=== PATIENT | female | born 1960 | race Caucasian/White ===

== ENCOUNTER 2016-08-14 23:14 | Emergency (ER) | payer BC, OTHER ==
[~2016-08-14] VITALS: Ht 157.5 cm; Wt 75.3 kg
[~2016-08-14 23:14] MED LIST: IBUP800T23 PO; TAB-TAB PO
[2016-08-14 23:21] VITALS: BP 122/80; PULSE 97; RESP 16; TEMP 98; O2SAT 99
[2016-08-15] MEDS ORDERED: TRAZ50TA12 PO (03:08)
[2016-08-15] MEDS ORDERED: VITA400T PO (03:08)
[2016-08-15] MEDS ORDERED: MAGN400T2 PO (03:08)
--- NOTE | 2016-08-15 03:54 | PD ---
HPI Chief Complaint: Edema Time Seen by Provider: 03:50 Travel History International Travel<30 days: No Contact w/Intl Traveler<30days: No Traveled to known affect area: No History of Present Illness HPI 56-year-old female presents to the emergency department for complaint of right calf swelling pain and ecchymosis. Symptoms began after running to rescue at [employer] reportedly. Patient noted severe pain during activity. Patient states now leg is swollen and bruised. No chest pain or shortness of breath. No history of clotting disorder. Patient is not currently on antibiotic. Last antibiotic use was 3 months ago. Patient is allergic to quinolones. Pain is 2/ 10 intensity. PFSH Past Medical History Narrative Medical Anxiety high cholesterol diabetes hypertension and insomnia pneumonia no alcohol or tobacco use nursing notes reviewed Anxiety: Yes High Cholesterol: Yes Diabetes: Yes Diminished Hearing: No Hypertension: Yes Insomnia: Yes Pneumonia: Yes (2016) Tetanus Vaccination: > 5 Years Influenza Vaccination: Yes ?: Not LMP: "JUST STOPPED THEM FOR GOOD" FEBRUARY: 2016 Menopausal: Yes : 2 Para: 2 Past Surgical History Surgical History: No Previous Surgery Social History Alcohol Use: No Tobacco Use: No Substance Use: No Allergies-Medications (Allergen,Severity, Reaction): Coded Allergies: Cipro (Verified Allergy, Severe, Swelling, 08/15/16) THROAT SWELLING Reported Meds & Prescriptions Reported Meds & Active Scripts Active Reported Trazodone (Trazodone HCl) 50 Mg Tab 50 Mg PO HS Vitamin D-3 (Cholecalciferol) 400 Unit Tab 1 Cap PO DAILY Magnesium Oxide 400 Mg Tab 400 Mg PO DAILY Review of Systems Except as stated in HPI: all other systems reviewed are Neg Physical Exam Narrative GENERAL: Well-developed well-nourished female in no acute distress no respiratory distress SKIN: Warm and dry. HEAD: Normocephalic. EYES: No scleral icterus. No injection or drainage. NECK: Supple, trachea midline. No JVD or lymphadenopathy. CARDIOVASCULAR: Regular rate and rhythm without murmurs, gallops, or rubs. RESPIRATORY: Breath sounds equal bilaterally. No accessory muscle use. GASTROINTESTINAL: Abdomen soft, non-tender, nondistended. MUSCULOSKELETAL: No cyanosis, right lower extremity calf edema ecchymosis and tenderness; Achilles tendon appears intact with provocative testing/calf squeeze test; dorsalis pedis pulse 2+ to palpation; capillary refill less than 2 seconds per digit. BACK: Nontender without obvious deformity. No CVA tenderness. Data Data Last Documented VS Vital Signs Date Time Temp Pulse Resp B/P Pulse Ox O2 Delivery O2 Flow Rate FiO2 08/15/16 05:09 92 16 103/71 97 Room Air 08/14/16 23:21 98.0 Orders Us Leg Venous Doppler (08/15/16 ) Tibia/Fibula (Ap/Lat) (08/15/16 ) MDM Medical Decision Making Medical Screen Exam Complete: Yes Emergency Medical Condition: Yes Medical Record Reviewed: Yes Interpretation(s) right tib/fib xr FINDINGS: Two view examination of the right tibia demonstrates no evidence of fracture or dislocation. Bony mineralization is normal. The soft tissue structures are intact. CONCLUSION: Negative exam. Caden Yin MD on August 15, 2016 at 4:25 Board Certified Radiologist. This report was verified electronically. US RLE: CONCLUSION: The study is negative for deep venous thrombosis right lower extremity. Caden Yin MD on August 15, 2016 at 5:07 Board Certified Radiologist. This report was verified electronically. Differential Diagnosis Gastrocnemius muscle tear, DVT, Achilles tendon rupture Narrative Course Imaging studies ordered Diagnosis Primary Impression: Sprain of right lower leg Referrals: Primary Care Physician call for appointment Patient Instructions: General Instructions Additional Instructions: Return to the emergency department for any concerns or change in condition Follow-up with primary care provider May use acetaminophen/Tylenol every 4 hours and/or ibuprofen/Motrin/Advil every 6-8 hours as needed for pain or for fever 100.4F or greater May apply moist heat intermittently for comfort purposes Med/Other Pt SpecificInfo: No Change to Meds Disposition: 01 DISCHARGE HOME Condition: Stable Karli Goodman MD Aug 15, 2016 03:53
--- NOTE | 2016-08-15 04:27 | RADHPO ---
EXAM DATE/TIME: 08/15/2016 04:04 [facility] COMPARISON: No previous studies available for comparison. INDICATIONS : Right tibia/fibula pain and bruising to the mid shaft. MEDICAL HISTORY : None. SURGICAL HISTORY : None. ENCOUNTER: Initial ACUITY: 2 days PAIN SCORE: 2/10 LOCATION: Right tibia/fibula FINDINGS: Two view examination of the right tibia demonstrates no evidence of fracture or dislocation. Bony mi neralization is normal. The soft tissue structures are intact. CONCLUSION: Negative exam. Caden Yin MD on August 15, 2016 at 4:25 Board Certified Radiologist. This report was verified electronically.
[2016-08-15 05:09] VITALS: BP 103/71; PULSE 92; RESP 16; O2SAT 97
--- NOTE | 2016-08-15 05:09 | RADHPO ---
EXAM DATE/TIME: 08/15/2016 04:34 [facility] COMPARISON: No previous studies available for comparison. INDICATIONS : Right calf pain and swelling for three days. MEDICAL HISTORY : Hypercholesterolemia. Hypertension. Diabetic. Anxiety. SURGICAL HISTORY : No recorded surgical history. ENCOUNTER: Initial ACUITY: 3 days PAIN SCORE: 2/10 LOCATION: Right leg. TECHNIQUE: Venous ultrasound of the leg was performed from the inguinal ligament to the proximal calf. Real-jose e, color Doppler and spectral tracing, compression and augmentation techniques were used. FINDINGS: There is normal compressibility of the deep venous system from the inguinal region to the proximal ca lf. No echogenic clot is seen in the lumen of the common femoral, femoral, popliteal, and posterior tibial veins. There is a normal response of the venous system to proximal and distal augmentation an d respiration. CONCLUSION: The study is negative for deep venous thrombosis right lower extremity. Caden Yin MD on August 15, 2016 at 5:07 Board Certified Radiologist. This report was verified electronically.
== END 2016-08-15 05:29 | disposition home or self-care (01) ==
LOC: PHED 23:14
DX: S86.811A Strain of other muscle(s) and tendon(s) at lower leg level, right leg, initial encounter (principal); X50.3XXA Overexertion from repetitive movements, initial encounter; Y93.02 Activity, running; I10 Essential (primary) hypertension; E78.00 Pure hypercholesterolemia, unspecified; E11.9 Type 2 diabetes mellitus without complications
CPT/HCPCS: 73590; 93971